=== PATIENT | female | born 1970 | race Caucasian/White ===

== ENCOUNTER 2024-11-13 13:30 | Outpatient (CLI) | payer OTHER, SELFPAY ==
--- NOTE | ~2024-11-13 | CT_ITS ---
EXAMINATION: CT cervical spine wo con DATE: 11/13/2024 14:23 INDICATION: Myelopathy and radiculopathy. TECHNIQUE: Computed tomography (CT) of the cervical spine was performed without intravenous contrast. Automated exposure control and iterative reconstruction technique were employed. The dose-length pro duct was 275.02 mGy-cm. COMPARISON: Cervical spine MRI 11/13/2024 FINDINGS: Bone alignment is normal. There are changes of anterior fusion procedure from C4 to C7 with healed interbody bone graft and anterior plates and screws. Vertebral body heights are normal. There is mildly decreased disc height at C7-T1. The following disc levels are specifically discussed: C2-C3: There is no uncovertebral joint osteoarthritis. There is moderate right and mild left facet renay int osteoarthritis. There is mild right neural foraminal stenosis. There is no central canal stenosis . C3-C4: There is mild right and moderate left uncovertebral joint osteoarthritis. There is severe bila teral facet joint osteoarthritis. There is mild right and moderate left neural foraminal stenosis. Th ere is mild central canal stenosis. C4-C5: There is no uncovertebral joint hypertrophy. There is ankylosis of the facet joints without hy pertrophy. There is no neural foraminal stenosis. There is no central canal stenosis. C5-C6: There is mild bilateral uncovertebral joint hypertrophy. There is ankylosis of the facet joint s without hypertrophy. There is no neural foraminal stenosis. There is no central canal stenosis. C6-C7: There is mild bilateral uncovertebral joint hypertrophy. There is ankylosis of the facet joint s without hypertrophy. There is no neural foraminal stenosis. There is no central canal stenosis. C7-T1: There is no uncovertebral joint osteoarthritis. There is severe bilateral facet joint osteoart hritis. There is mild bilateral neural foraminal stenosis. There is no central canal stenosis. IMPRESSION: 1. Moderate cervical spondylosis. 2. Anterior fusion procedure from C4 to C7. Reviewed, dictated and finalized at location B.
--- NOTE | ~2024-11-13 | MR_ITS ---
EXAMINATION: MR cervical spine wo con DATE: 11/13/2024 14:13 INDICATION: Neck pain. Left arm pain. TECHNIQUE: Magnetic resonance imaging (MRI) of the cervical spine was performed without intravenous c ontrast. COMPARISON: None FINDINGS: Alignment is normal. There are changes of anterior fusion procedure from C4 to C7 with heal ed interbody bone graft and anterior plates and screws. Vertebral body heights are normal. There is m ildly decreased disc height at C7-T1. There is increased T2-weighted signal intensity in the spinal c ord at C3-C4, consistent with myelomalacia. The following disc levels are specifically discussed: C2-C3: The disc does not extend beyond the endplate margin. There is no uncovertebral joint osteoarth ritis. There is mild bilateral facet joint osteoarthritis. There is mild right neural foraminal steno sis. There is no central canal stenosis. C3-C4: The disc is bulging. There is mild right and severe left uncovertebral joint osteoarthritis. T here is moderate right and severe left facet joint osteoarthritis. There is mild right and severe lef t neural foraminal stenosis. There is moderate central canal stenosis with ventral and dorsal indenta tion of the spinal cord. C4-C5: There is no uncovertebral joint hypertrophy. There is no facet joint hypertrophy. There is no neural foraminal stenosis. There is no central canal stenosis. C5-C6: There is no uncovertebral joint hypertrophy. There is no facet joint hypertrophy. There is no neural foraminal stenosis. There is no central canal stenosis. C6-C7: There is no uncovertebral joint hypertrophy. There is no facet joint hypertrophy. There is no neural foraminal stenosis. There is no central canal stenosis. C7-T1: The disc does not extend beyond the endplate margin. There is mild left uncovertebral joint os teoarthritis. There is severe bilateral facet joint osteoarthritis. There is mild bilateral neural fo raminal stenosis. There is no central canal stenosis. IMPRESSION: 1. Myelomalacia at C3-C4. 2. Moderate cervical spondylosis. 3. Anterior fusion procedure from C4 to C7. Reviewed, dictated and finalized at location B.
== END 2024-11-13 13:31 | disposition home or self-care (01) ==
DX: R13.13 Dysphagia, pharyngeal phase (principal); R20.0 Anesthesia of skin; Q76.49 Other congenital malformations of spine, not associated with scoliosis; G95.20 Unspecified cord compression; G95.89 Other specified diseases of spinal cord; Z98.1 Arthrodesis status; M47.892 Other spondylosis, cervical region
CPT/HCPCS: 72125; 72141